=== PATIENT | female | born 1995 | race Caucasian/White ===

== ENCOUNTER 2024-04-25 08:05 | Outpatient (CLI) | payer OTHER, SELFPAY ==
--- NOTE | ~2024-04-25 | US_ITS ---
US abdomen limited INDICATION: Epigastric pain PROCEDURE: Realtime right upper abdominal ultrasound. COMPARISON: No prior studies for comparison. FINDINGS: The pancreas is normal without focal mass or pancreatic ductal dilation. Liver echotexture is normal without focal mass or intrahepatic biliary dilatation. There is normal directional flow i n the portal vein. The gallbladder is normal without stones, gallbladder wall thickening or pericholecystic fluid. Comm on bile duct measures 3 mm. No sonographic Hogan's sign. IMPRESSION: 1: Normal limited abdominal ultrasound. Reviewed, dictated and finalized at location B.
== END 2024-04-25 08:06 ==
LOC: MICIMG 08:07
DX: K92.1 Melena (principal); R10.13 Epigastric pain; R19.4 Change in bowel habit; R15.2 Fecal urgency; Z80.0 Family history of malignant neoplasm of digestive organs; R15.9 Full incontinence of feces
CPT/HCPCS: 76705

== ENCOUNTER 2024-11-16 17:57 | Emergency (ER) | payer OTHER, SELFPAY ==
--- OUTSIDE RECORDS SUMMARY | 2024-11-16 18:00 | XMS_ITS ---
Author Organization [facility] Address [address] [place], [place] [id number] Care Team Providers Care Research Professional Name Role Phone CRAIG Venegas Unavailable [phone] Allen Mcrae Unavailable Unavailable ART REYES Unavailable [phone] Allergies No Known Allergies REASON FOR VISIT *Nail surgery follow-up Encounters Encounter Location Date Provider Diagnosis [facility] [address] [facility] [address] [place], [place] [id number] 04/03/2024 ART REYES Ingrowing nail L60.0 and Encounter for other specified surgical aftercare Z48.89 Assessments Encounter Date Diagnosis (ICD Code) Assessment Notes Treatment Notes Treatment Clinical Notes Section Notes 04/03/2024 Ingrowing nail (ICD-10 - L60.0) 04/03/2024 Encounter for other specified surgical aftercare (ICD-10 - Z48.89) 04/03/2024 Other I advised the patient that no further treatment is necessary at this time. If the condition should worsen they should call the office. Plan Of Treatment No Information Progress Notes * CHARLIE MALISSADOB:1995 ( 28 yo F)Acc No.[id number]:04/03/2024 Patient: MALISSA REED Provider: Pamela Reyes DPM :1995 A ge:28 Y S ex:Female Date:04/03/2024 Address:[address] [id number] Subjective: * Chief Complaints: * 1 . *Nail surgery follow-up. * HPI: H PI: Follow Up Visit P atient presents for follow-up visit for nail surgery. Patient had both borders removed at previous visit. Patient states she is doing well and has been following after care instructions. MA: JONAH. * Medical History: * Family History: F ather: PRN - Father: . * Social History: M igrated Social History: M igrated Social History: History of tobacco use : , Smoking Status : Never used tobacco. * Allergies: N .K.D.A. Objective: * Examination: P hysical Examination: Gen: T he patient is awake, alert, well developed, well groomed and well nourished. They are in no apparent distress. . Musc: T here is no pain on palpation. Foot structure is normal. . Derm: S kin is warm and dry, with no rashes, good skin turgor and normal hair distribution. The site of the nail surgery is healing well. There are no signs of infection. . Neuro: G rossly intact to light touch bilateral . Vasc: D orsalis pedis and posterior tibial pulses 2+ bilaterally. No edema noted. Capillary fill time < 3 seconds to all digits. . Assessment: * Assessment: 1. I ngrowing nail - L60.0 (Primary) 2 . E ncounter for other specified surgical aftercare - Z48.89 Plan: * Treatment: * Procedure Codes: 9 9024 POSTOP FOLLOW-UP VISIT * Billing Information: * Visit Code: * Procedure Codes: 82853 POSTOP FOLLOW-UP VISIT. * Sign off status: Completed true * Provider: Pamela Reyes DPM Date: 0 04/03/2024 Generated for Miranda lawler/Darrick/Katiaitting on: 0 11/16/2024 05:59 PM MANAGEMENT LIAISON History and Physical Notes * HPI (History of Present Illness) Category Sub-Category Detail Notes Category Not es HPI Follow Up Visit Patient presents for follow-up visit for nail surgery. Patient had both borders removed at previous visit. Patient states she is doing well and has been following after care instructions. MA: LB Examination Category Sub-Category Detail Notes Category Not es Physical Examination Gen: The patient is awake, alert, well developed, well groomed and well nourished. They are in no apparent distress. Vasc: Dorsalis pedis and p osterior tibial pulses 2+ bilaterally. No edema noted. Capillary fill time < 3 seconds to all digits. Neuro: Grossly intact to li ght touch bilateral Musc: There is no pain on palpation. Foot structure is normal. Derm: Skin is warm and dry , with no rashes, good skin turgor and normal hair distribution. The site of the nail surgery is healing well. There are no signs of infection.
--- OUTSIDE RECORDS SUMMARY | 2024-11-16 18:00 | XMS_ITS | Patient Health Summary ---
Author Organization [facility] Address [address] [place] [address] Care Team Providers Care Packing Line Worker Name Role Phone Christal Liu MD Primary Care Provider Note from [facility],non-owned Affiliates and Associated Physician Practices is amultiple site organization consisting of ambulatory clinics and hospital sitesin [place], [place], [place] and [place]. This disclosure is being madepursuant to the Care Everywhere program and may not contain all information available regarding this patient. Last updated 18.[facility] Allergies No known active allergies Medications * Be aware that medications may not be up to date on this document. Alwaysverify current medications with the patient. * etonogestrel-ethinyl estradiol (Nuvaring) 0.12-0.015 MG/24HR vaginal ring (Started 04/20/2023) * Cetirizine HCl (ZYRTEC ALLERGY PO) * ondansetron, disintegrating, (Zofran ODT) 4 MG tablet(Started 01/22/2024) Take 1 (one) tablet by mouth every 6 hours as needed * traZODone (Desyrel) 50 MG tablet(Started 10/14/2023) Take 1 (one) tablet to 2 (two) tablets by mouth at bedtime * sertraline (Zoloft) 100 MG tablet(Started 10/14/2023) Take 1 (one) tablet by mouth once daily Active Problems Problem Noted Date Diagnosed Date Allergic rhinitis 05/13/2023 Immunizations * INFLUENZA VACCINE, CELL CULTURE, QUADR. (FLUCELVAX QUADRIVALENT; 6MO+) (CCIIV4)(Given 06/29/2022) Social History Tobacco Use Types Packs/Day Years Used Date Smoking Tobacco: Former Cigarettes 0.5 4 0 05/07/2009 - 05/07/2013 Passive Smoke Exposure: Past Smokeless Tobacco: Never Tobacco Cessation:Counseling Given: Not Answered Alcohol Use Standard Drinks/Week Comments Not Currently 0 (1 standard drink = 0.6 oz pur e alcohol) PHQ-2 Answer Date Recorded PHQ2 TOTAL SCORE 0 05/13/2023 Sex and Gender Information Value Date Recorded Sex Assigned at Female 05/13/2023 9:28 PM CDT Gender Identity Female 05/13/2023 9:28 PM CDT Sexual Orientation Straight 05/13/2023 9: 28 PM CDT Last Filed Vital Signs Vital Sign Reading Time Taken Comments Blood Pressure 116/79 05/18/2024 10:00 AM CDT Pulse 90 05/18/2024 10:00 AM CDT Temperature 36.4 C (97.6 F) 05/18/2024 9:35 AM CDT Respiratory Rate 19 05/18/2024 10:00 AM CDT Oxygen Saturation 96% 05/18/2024 10:20 AM CDT Inhaled Oxygen Concentration - - Weight 91.2 kg (201 lb) 05/18/2024 7:19 AM CDT Height 165.1 cm (5' 5 ) 05/18/2024 7:19 AM CDT Body Mass Index 33.45 05/18/2024 7:19 AM CDT Procedures * PATHOLOGY TISSUE EXAM (STL)(Performed 05/18/2024) Performed for Rectal bleeding, Abdominal pain, unspecified abdominal location * HELICOBACTER PYLORI UREASE (STL)(Performed 05/18/2024) Performed for Rectal bleeding, Abdominal pain, unspecified abdominal location * AL COLONOSCOPY,BIOPSY(Performed 05/18/2024) Performed for Rectal bleeding, Abdominal pain, unspecified abdominal location * AL EGD FLEX TRANSORAL W BX SNGL OR MULT(Performed 05/18/2024) Performed for Rectal bleeding, Abdominal pain, unspecified abdominal location * AL ED EGD FLEX TRANSORAL DX(Performed 05/18/2024) Performed for Rectal bleeding, Abdominal pain, unspecified abdominal location * AL COLONOSCOPY, DIAGNOSTIC(Performed 05/18/2024) Performed for Rectal bleeding, Abdominal pain, unspecified abdominal location * ENDOSCOPY, COLON, DIAGNOSTIC(Performed 05/18/2024) Performed for Blood in stool * EGD(Performed 05/18/2024) Performed for Abdominal pain, unspecified abdominal location * HCG URINE QUALITATIVE - POCT (IP) INTERFACED(Performed 05/18/2024) * US ABDOMEN LIMITED(Performed 04/25/2024) Performed for Hematochezia, Epigastric pain, Change in bowel habits, Fecal urgency, FHx: malignant neoplasm of gastrointestinal tract, Encopresis * COMPREHENSIVE METABOLIC PANEL(Performed 03/25/2024) Performed for Hematochezia, Epigastric pain, Change in bowel habits, Fecal urgency, FHx: malignant neoplasm of gastrointestinal tract * CBC W AUTO DIFFERENTIAL(Performed 03/25/2024) Performed for Hematochezia, Epigastric pain, Change in bowel habits, Fecal urgency, FHx: malignant neoplasm of gastrointestinal tract * INFLAMMATORY BOWEL DISEASE PANEL(Performed 03/25/2024) Performed for Hematochezia, Epigastric pain, Change in bowel habits, Fecal urgency, FHx: malignant neoplasm of gastrointestinal tract * C-REACTIVE PROTEIN(Performed 03/25/2024) Performed for Hematochezia, Epigastric pain, Change in bowel habits, Fecal urgency, FHx: malignant neoplasm of gastrointestinal tract * ERYTHROCYTE SEDIMENTATION RATE(Performed 03/25/2024) Performed for Hematochezia, Epigastric pain, Change in bowel habits, Fecal urgency, FHx: malignant neoplasm of gastrointestinal tract * AMYLASE BLOOD(Performed 05/18/2023) Performed for Generalized abdominal pain * LIPASE BLOOD(Performed 05/18/2023) Performed for Generalized abdominal pain * LIPID PROFILE(Performed 05/18/2023) Performed for Encounter for medical examination to establish care * TSH(Performed 05/18/2023) Performed for Encounter for medical examination to establish care, Generalized abdominal pain, Bright red rectal bleeding * COMPREHENSIVE METABOLIC PANEL(Performed 05/18/2023) Performed for Generalized abdominal pain, Bright red rectal bleeding, Encounter for medical examination to establish care * CBC W AUTO DIFFERENTIAL(Performed 05/18/2023) Performed for Generalized abdominal pain, Bright red rectal bleeding, Encounter for medical examination to establish care Results * PATHOLOGY TISSUE EXAM (STL) (05/18/2024 9:30 AM CDT) Case Report Surgical Pathology Report Case: [id number] Authorizing Provider: Yessy Viera MD Collected: 05/18/2024 09:30 AM Ordering Location: [facility] Received: 05/18/2024 11:39 AM Hospital - Endoscopy Services Pathologist: Esthela Riley MD Specimen: Colon Biopsy, Random 05/19/2024 9:02 AM [facility] Final Diagnosis Large intestine, random, biopsy - Colonic mucosa with no histopathologic abnormality - No evidence of active, chronic or microscopic colitis 05/19/2024 9:02 AM [facility] Clinical History The patient is a 29-year-old woman with hematochezia. Endoscopic procedure/findings: normal examined colon, biopsied. 05/19/2024 9:02 AM [facility] Gross Description The requisition and specimen(s) are identified with the patient's name Joceline Yun . Received in formalin, specimen A , random consists of 3 yellow-solitario tissue fragments, 0.2-0.3 cm and 0.5 x 0.3 x 0.1 cm in aggregate, submitted in toto in cassette A1./BAJ 05/19/2024 9:02 AM [facility] Microscopic Description Microscopic examination substantiates the above diagnosis. 05/19/2024 9:02 AM [facility] Pathologist Location at [facility] 05/19/2024 9:02 AM [facility] Disclaimer All histochemical and/or immunohistochemical results are interpreted with controls that demonstrate appropriate staining reactions before reporting results. Note on use of immunocytochemistry reagents: This test was developed and its performance characteristic determined by [facility], Department of Laboratory Medicine. It has not been cleared or approved by the U.S. Food and Drug Administration (FDA). The FDA has determined that such clearance or approval is not necessary. The test is used for clinical purpose. It should not be regarded as investigational or for research. This laboratory is certified to perform high complexity testing. The performance characteristics of the IHC/YURIDIA assays have been validated on formalin-fixed paraffin embedded tissues only. The assays have not been validated on decalcified tissues. Results should be interpreted with caution. 05/19/2024 9:02 AM CDT [facility] Embedded Images 05/19/2024 9:02 AM CDT [facility] Pathology/Cytology COLONIC BIOPSY SPECIMEN / Unknown 05/18/2024 9:30 AM CDT 05/18/2024 11:39 AM CDT Comment:Pre-op diagnosis: Rectal bleeding [K62.5] Abdominal pain, unspecified abdominal location [R10.9] Yesys Viera MD LAB - PATHOLOGY/CYTO LOGY ORDERABLES Performing Organization Address City/[facility] Co de Phone Number [facility] [address] [place] [id number] * HELICOBACTER PYLORI UREASE (STL) (05/18/2024 9:19 AM CDT) Helicobacter pylori Urease Initial Negative Negative 05/21/2024 3:01 PM CDT [facility] Helicobacter pylori Urease Final Negative Negative 05/21/2024 3:01 PM CDT [facility] Microbiology GASTRIC BIOPSY SPECIMEN / Unknown 05/18/2024 9:19 AM CDT 05/18/2024 6:37 PM CDT Comment:Pre-op diagnosis: Rectal bleeding [K62.5] Abdominal pain, unspecified abdominal location [R10.9] Yessy Viera MD LAB - MICROBIOLOGY O RDERABLES Performing Organization Address City/[facility]/ZIP Co de Phone Number [facility] [address] [place], [place] [phone] * ENDOSCOPY, COLON, DIAGNOSTIC (05/18/2024 8:01 AM CDT) Report Endoscopy POC _ Patient Name: Joceline Jama Procedure Date: 05/18/2024 8:01 AM Date of : 1995 Admit Type: Outpatient Age: 29 Gender: Female Ethnicity: Not or Race: White Attending MD: Yessy Viera MD, [id number] _ Procedure: Colonoscopy Indications: Hematochezia Providers: Yessy Viera MD (Doctor), Remington Sr RN, Akiko Plata, Delivery Coordinator Patient Profile: 29F presents for eval of rectal bleeding. no prior exams Referring MD: Christal Liu MD (Referring MD) Medicines: Monitored Anesthesia Care Complications: No immediate complications. _ Estimated Blood Loss: Estimated blood loss was minimal. Procedure: Pre-Anesthesia Assessment: - Prior to the procedure, a History and Physical was performed, and patient medications and allergies were reviewed. The patient's tolerance of previous anesthesia was also reviewed. The risks and benefits of the procedure and the sedation options and risks were discussed with the patient. All questions were answered, and informed consent was obtained. Prior Anticoagulants: The patient has taken no anticoagulant or antiplatelet agents. ASA Grade Assessment: II - A patient with mild systemic disease. After reviewing the risks and benefits, the patient was deemed in satisfactory condition to undergo the procedure. After I obtained informed consent, the scope was passed under direct vision. Throughout the procedure, the patient's blood pressure, pulse, and oxygen saturations were monitored continuously. The Colonoscope was introduced through the anus and advanced to the cecum, identified by appendiceal orifice and ileocecal valve. The colonoscopy was performed without difficulty. The patient tolerated the procedure well. The quality of the bowel preparation was fair. The ileocecal valve, appendiceal orifice, and rectum were photographed. Impression: - Preparation of the colon was fair. - Internal hemorrhoids. - Normal mucosa in the entire examined colon. Biopsied. Findings: The perianal and digital rectal examinations were normal. Internal hemorrhoids were found during retroflexion. The hemorrhoids were small. Normal mucosa was found in the entire colon. Biopsies were taken with a cold forceps for histology. _ Recommendation: - Patient has a contact number available for emergencies. The signs and symptoms of potential delayed complications were discussed with the patient. Return to normal activities tomorrow. Written discharge instructions were provided to the patient. - High fiber diet. - Await pathology results. - Repeat colonoscopy at age 45 for screening purposes. - Use fiber, for example Citrucel, Fibercon, Konsyl or Metamucil. Procedure Code(s): --- Professional --- 72239, Colonoscopy, flexible; with biopsy, single or multiple --- Technical --- 74280, Colonoscopy, flexible; with biopsy, single or multiple Diagnosis Code(s): --- Professional --- K64.8, Other hemorrhoids K92.1, Melena (includes Hematochezia) --- Technical --- K64.8, Other hemorrhoids K92.1, Melena (includes Hematochezia) CPT copyright 2020 [employer]. All rights reserved. The codes documented in this report are preliminary and upon bench boring machine operator review may be revised to meet current compliance requirements. Yessy Viera MD 05/18/2024 9:41:48 AM This report has been signed electronically. Number of Addenda: 0 Note Initiated On: 05/18/2024 8:01 AM [facility] 05/18/2024 8:01 AM CDT Narrative Procedure Note Yessy Viera MD - 05/18/2024 9:44 AM CDT Normal colon aside from hemorrhoids Psyllium Await path D/w joceline Yessy Viera MD GI PROCEDURE ORDERAB LES [facility] * EGD (05/18/2024 8:00 AM CDT) Report Endoscopy POC _ Patient Name: Joceline Yun Procedure Date: 05/18/2024 8:00 AM Date of : 1995 Admit Type: Outpatient Age: 29 Gender: Female Ethnicity: Not or Race: White Attending MD: Yessy Viera MD, [id number] _ Procedure: Upper GI endoscopy Indications: Generalized abdominal pain Providers: Yessy Viera MD (Doctor), Remington Sr RN, Akiko Plata, Delivery Coordinator Patient Profile: 29F presents for eval of abd pain Referring MD: Christal Liu MD (Referring MD) Medicines: Monitored Anesthesia Care Complications: No immediate complications. _ Estimated Blood Loss: Estimated blood loss was minimal. Procedure: Pre-Anesthesia Assessment: - Prior to the procedure, a History and Physical was performed, and patient medications and allergies were reviewed. The patient's tolerance of previous anesthesia was also reviewed. The risks and benefits of the procedure and the sedation options and risks were discussed with the patient. All questions were answered, and informed consent was obtained. Prior Anticoagulants: The patient has taken no anticoagulant or antiplatelet agents. ASA Grade Assessment: II - A patient with mild systemic disease. After reviewing the risks and benefits, the patient was deemed in satisfactory condition to undergo the procedure. After obtaining informed consent, the endoscope was passed under direct vision. Throughout the procedure, the patient's blood pressure, pulse, and oxygen saturations were monitored continuously. The was introduced through the mouth, and advanced to the second part of duodenum. The upper GI endoscopy was accomplished without difficulty. The patient tolerated the procedure well. Impression: - Normal esophagus. - Normal stomach. Biopsied. Findings: The examined esophagus was normal. The entire examined stomach was normal. Biopsies were taken with a cold forceps for Helicobacter pylori testing using CLOtest. _ Recommendation: - Patient has a contact number available for emergencies. The signs and symptoms of potential delayed complications were discussed with the patient. Return to normal activities tomorrow. Written discharge instructions were provided to the patient. - High fiber diet. - Await pathology results. - proceed to colonoscopy Procedure Code(s): --- Professional --- 48719, Esophagogastroduo denoscopy, flexible, transoral; with biopsy, single or multiple --- Technical --- 97417, Esophagogastroduo denoscopy, flexible, transoral; with biopsy, single or multiple Diagnosis Code(s): --- Professional --- R10.84, Generalized abdominal pain --- Technical --- R10.84, Generalized abdominal pain CPT copyright 2020 [employer]. All rights reserved. The codes documented in this report are preliminary and upon bench boring machine operator review may be revised to meet current compliance requirements. Yessy Viera MD 05/18/2024 9:33:54 AM This report has been signed electronically. Number of Addenda: 0 Note Initiated On: 05/18/2024 8:00 AM [facility] 05/18/2024 8:00 AM CDT Narrative Procedure Note Yessy Viera MD - 05/18/2024 9:35 AM CDT Normal EGD s/p gastric bx Await path Proceed to colon Yessy Viera MD GI PROCEDURE ORDERAB LES [facility] * HCG URINE QUALITATIVE - POCT (IP) INTERFACED (05/18/2024 7:16 AM CDT) HCG Qual Urine Negative Negative 05/18/2024 7:22 AM CDT [facility] Urine URINE / Unknown 05/18/2024 7 :16 AM CDT 05/18/2024 7:22 AM CDT Yessy Viera MD LAB - POINT OF CARE ORDERABLES Performing Organization Address City/[facility]/ZIP Co de Phone Number [facility] [address] [place], [place] [phone] * US ABDOMEN LIMITED (04/25/2024) Anatomical Region Laterality Modality Abdomen Ultrasound 04/25/2024 Nirav Faith WIRE TRANSFER CLERK-CASH SPECIALIST US ORDERABLES * (ABNORMAL) INFLAMMATORY BOWEL DISEASE PANEL (03/25/2024 11:46 AM CDT) Saccharomyces cerevisiae Antibody IgG 45.2(H) 0.0 - 24.9 Units 03/27/2024 3:09 PM CDT [facility] ([facility]) Comment: Negative <20.0 Equivocal 20.1 - 24.9 Positive >or= 25.0 Saccharomyces cerevisiae Antibody IgA 53.8(H) 0.0 - 24.9 Units 03/27/2024 3:09 PM CDT [facility]) Comment: Negative <20.0 Equivocal 20.1 - 24.9 Positive >or= 25.0 IgA and IgG antibody testing for S. cerevisiae is useful adjunct testing for differentiating Crohn's disease and ulcerative colitis. Close to 80% of Crohn's disease patients are positive for either IgA or IgG. In ulcerative colitis, less than 15% are positive for IgG and less than 2% are positive for IgA. Fewer than 5% are positive for either IgG or IgA antibody, and no healthy controls had antibody for both. Atypical p-ANCA Titer <1:20 Neg:<1:20 titer 03/27/2024 3:09 PM CDT [facility] ([facility]) Comment: The atypical pANCA pattern has been observed in a significant percentage of patients with ulcerative colitis, primary sclerosing cholangitis and autoimmune hepatitis. ASCA+/PANCA- Suggestive of Crohn's disease ASCA-/PANCA+ Suggestive of Ulcerative colitis Blood BLOOD SPECIMEN / Unknown Lab Venipuncture / Unknown 03/25/2024 11:46 AM CDT 03/25/2024 11:46 AM CDT Narrative [facility] ([facility]) - 03/27/2024 3:09 PM CDT Performed at: [address] [id number] Plant Worker: Chapito Chua MD, Phone: [phone] Performed at: 02 [address] [id number] Plant Worker: Cole Carbone PhD, Phone: [phone] Nirav Faith APRN-CASH SPECIALIST LAB - WEB OPERATIONS LEAD RY ORDERABLES [facility] ([facility]) [address] [place] [address] * (ABNORMAL) C-REACTIVE PROTEIN (03/25/2024 11:46 AM CDT) C-Reactive Protein 2.63(H) <=0.50 mg/dL 03/25/2024 1:00 PM CDT [facility] Blood BLOOD SPECIMEN / Unknown Lab Venipuncture / Unknown 03/25/2024 11:46 AM CDT 03/25/2024 11:46 AM CDT Nirav Faith [facility] LAB - WEB OPERATIONS LEAD RY ORDERABLES Performing Organization Address [facility] Co de Phone Number [facility] [address] [place] [phone] * (ABNORMAL) ERYTHROCYTE SEDIMENTATION RATE (03/25/2024 11:46 AM CDT) [facility] Erythrocyte Sedimentation Rate Automated 26(H) 0 - 20 MM/HR 03/25/2024 12:43 PM CDT [facility] Blood BLOOD SPECIMEN / Unknown Lab Venipuncture / Unknown 03/25/2024 11:46 AM CDT 03/25/2024 11:46 AM CDT Nirav Faith [facility] LAB - HEMATOL OGY ORDERABLES Performing Organization Address [facility] de Phone Number [facility] [address] [place] [address] * (ABNORMAL) CBC WITH DIFFERENTIAL (03/25/2024 11:46 AM CDT) Only the most recent of2 resultswithin the time period is included. Pathologist [facility] WBC 11.4(H) 4.0 - 10.7 x10E9/L 03/25/2024 12:36 PM CDT [facility] RBC Count 5.01 3.90 - 5.20 x10E12/L 03/25/2024 12:36 PM CDT [facility] Hemoglobin 14.1 11.9 - 15.8 g/dL 03/25/2024 12:36 PM CDT [facility] Hematocrit 44.4 34.8 - 46.1 % 03/25/2024 12:36 PM CDT [facility] MCV 88.6 80.0 - 98.0 fL 03/25/2024 12:36 PM CDT [facility] MCH 28.1 26.7 - 33.6 pg 03/25/2024 12:36 PM [facility] MCHC 31.8 31.7 - 36.3 g/dL 03/25/2024 12:36 PM [facility] RDW-CV 11.7 11.3 - 14.8 % 03/25/2024 12:36 PM [facility] Platelet Count 264 150 - 420 x10E9/L 03/25/2024 12:36 PM [facility] MPV 11.2 7.8 - 11.4 fL 03/25/2024 12:36 PM [facility] Neutrophil % 73.4 41.0 - 74.0 % 03/25/2024 12:36 PM [facility] Lymphocyte % 18.5 17.0 - 47.0 % 03/25/2024 12:36 PM [facility] Monocyte % 6.8 3.0 - 11.0 % 03/25/2024 12:36 PM [facility] Eosinophil % 0.7 0.0 - 7.0 % 03/25/2024 12:36 PM [facility] Basophil % 0.2 0.0 - 1.6 % 03/25/2024 12:36 PM [facility] Immature Granulocytes % 0.4 0.0 - 1.0 % 03/25/2024 12:36 PM [facility] Neutrophil Absolute 8.39(H) 1.60 - 7.50 x10E9/L 03/25/2024 12:36 PM [facility] Lymphocyte Absolute 2.12 1.00 - 4.40 x10E9/L 03/25/2024 12:36 PM [facility] Monocyte Absolute 0.78 0.15 - 1.00 x10E9/L 03/25/2024 12:36 PM [facility] Eosinophil Absolute 0.08 0.00 - 0.60 x10E9/L 03/25/2024 12:36 PM [facility] Basophil Absolute 0.02 0.00 - 0.13 x10E9/L 03/25/2024 12:36 PM [facility] Blood BLOOD SPECIMEN / Unknown Lab Venipuncture / Unknown 03/25/2024 11:46 AM CDT 03/25/2024 11:46 AM CDT Nirav Faith WIRE TRANSFER CLERK-CASH SPECIALIST LAB - HEMATOL OGY ORDERABLES [facility] [address] [place] [address] * COMPREHENSIVE METABOLIC PANEL (03/25/2024 11:46 AM CDT) Only the most recent of2 resultswithin the time period is included. [facility] Glucose 70 70 - 105 mg/dL 03/25/2024 1:00 PM CDT [facility] Sodium 137 136 - 145 mmol/L 03/25/2024 1:00 PM CDT [facility] Potassium 4.3 3.5 - 5.1 mmol/L 03/25/2024 1:00 PM CDT [facility] Chloride 105 98 - 107 mmol/L 03/25/2024 1:00 PM CDT [facility] CO2 23 22 - 29 mmol/L 03/25/2024 1:00 PM CDT [facility] Calcium 9.7 8.4 - 10.4 mg/dL 03/25/2024 1:00 PM CDT [facility] Anion Gap 9 6 - 16 mmol/L 03/25/2024 1:00 PM CDT [facility] BUN 10 5.3 - 18.7 mg/dL 03/25/2024 1:00 PM CDT [facility] Creatinine 0.81 0.57 - 1.11 mg/dL 03/25/2024 1:00 PM CDT [facility] Alkaline Phosphatase 89 40 - 150 U/L 03/25/2024 1:00 PM CDT [facility] ALT 15 0 - 55 U/L 03/25/2024 1:00 PM CDT [facility] AST 14 5 - 34 U/L 03/25/2024 1:00 PM CDT [facility] Protein Total 8.0 6.4 - 8.3 gm/dL 03/25/2024 1:00 PM CDT [facility] Albumin 3.6 3.4 - 5.0 gm/dL 03/25/2024 1:00 PM T [facility] Bilirubin Total 0.5 0.2 - 1.2 mg/dL 03/25/2024 1:00 PM CDT [facility] eGFR by CKD-EPI >90 >=90 mL/min/1.7 3 m2 03/25/2024 1:00 PM CDT [facility] Blood BLOOD SPECIMEN / Unknown Lab Venipuncture / Unknown 03/25/2024 11:46 AM CDT 03/25/2024 11:46 AM CDT Nirav Faith APRN-CASH SPECIALIST LAB - WEB OPERATIONS LEAD RY ORDERABLES [facility] [address] [place] [address] * LIPASE BLOOD (05/18/2023 7:44 AM CDT) Lipase 38 14 - 72 U/L [facility] INSURANCE BILL Comment:FASTING Blood BLOOD SPECIMEN / Unknown 05/18/2023 7:44 AM CDT 05/18/2023 Narrative Resulting Agency Comment Lab Testing performed at: [email or web address] [place] [address] [facility] [phone] Christal Liu MD LAB - CHEMISTRY ORDERABLES Performing Organization Address [facility] Co de Phone Number [facility] INSURANCE BILL [address] [place] [address] * AMYLASE BLOOD (05/18/2023 7:44 AM CDT) Amylase 71 31 - 110 U/L [facility] INSURANCE BILL Comment:FASTING Blood BLOOD SPECIMEN / Unknown 05/18/2023 7:44 AM CDT 05/18/2023 Narrative Resulting Agency Comment Lab Testing performed at: [facility] [address] [facility] [phone] Christal Liu MD LAB - CHEMISTRY ORDERABLES Performing Organization Address City/[facility]/ZIP Co de Phone Number [facility] INSURANCE BILL [address] [place] [address] * TSH (05/18/2023 7:44 AM CDT) TSH 1.380 0.450 - 4.500 uIU/mL [facility] INSURANCE BILL Comment:FASTING Blood BLOOD SPECIMEN / Unknown 05/18/2023 7:44 AM CDT 05/18/2023 Narrative Resulting Agency Comment Lab Testing performed at: [facility] [address] [facility] [phone] Christal Liu MD LAB - CHEMISTRY ORDERABLES [facility] INSURANCE BILL [address] [place] [address] * (ABNORMAL) LIPID PROFILE (05/18/2023 7:44 AM CDT) Cholesterol 209(H) 100 - 199 mg/dL [facility] INSURANCE BILL Triglycerides 204(H) 0 - 149 mg/dL [facility] INSURANCE BILL HDL Cholesterol 40 >39 mg/dL [facility] INSURANCE BILL VLDL Calculated 37 5 - 40 mg/dL [facility] INSURANCE BILL LDL Calculated 132(H) 0 - 99 mg/dL [facility] INSURANCE BILL Comment NOT AVAILABLE [facility] INSURANCE BILL Comment: FASTING Result cannot be obtained for this observation. Blood BLOOD SPECIMEN / Unknown 05/18/2023 7:44 AM CDT 05/18/2023 Narrative Resulting Agency Comment Lab Testing performed at: [facility] [address] [facility] [phone] Christal Liu MD LAB - CHEMISTRY ORDERABLES [facility] INSURANCE BILL [address] [place] [address] Care Teams Packing Line Worker Relationship Specialty Start Date End Date Christal Liu MD [address] [place] [address] PCP - General 11/28/23
--- OUTSIDE RECORDS SUMMARY | 2024-11-16 18:00 | XMS_ITS | Data Portability ---
Author Organization [facility]ITAL[facility] Address [address] [place] [address] Care Team Providers Care Electronics Engineering Manager Name Role Phone GERARDO JOHNSON Primary Care Provider [phone] Assessment No assessment recorded. Plan of Treatment Reminders Order Date Submit Date Provider Last Modified By Organization Details Last Modified Time Details Appointments None recorded. Lab pap, LB 2021 [email or web address], [address] [facility], [place], [address], 09:43:53 unlisted lab - Pap reflex hold 2021 [facility], [address] [place] [address], [address], 17:20:47 Referral None recorded. Procedures removal, intrauterin e device (PROC) 2021 kbritsch Not available 14:43:44 Surgeries None recorded. Imaging US, pelvis, limited - IUD placement 2020 HEMAL Not available 17:39:46 Medication Orders ibuprofen 800 mg tablet 2020 [email or web address] [facility], [address] [facility] [address] [place], [id number], 17:27:30 NuvaRing 0.12 mg-0.015 mg/24 hr vaginal 2021 [facility] [facility] [place], [address] [place], [id number], 19:08:37 estradiol 0.01% (0.1 mg/gram) vaginal cream 2023 [facility] [facility], [address] [place], [id number], 13:52:26 NuvaRing 0.12 mg-0.015 mg/24 hr vaginal 2023 [facility] [place], [address] [place], [id number], 13:52:25 Patient TargetsNo targets recorded. Patient Instructions Encounter Date Encounter Id Patient Instructions Last Modified By Organization Details Last Modified Time 09/12/2021 [id number] Care at Home With Your Baby: Care Instructions [email or web address] Not available 09/12/2021 11:49:11 edinburgh depression scale* [email or web address] Not available 10/05/2021 14:55:59 09/20/2022 [id number] Patient Health Questionnaire-9* kbritsch Not available 09/24/2022 14:42:53 eating healthy foods: care instructions [email or web address] Not available 09/20/2022 19:08:27 abuse/domestic violence education [email or web address] Not available 09/20/2022 19:08:27 01/25/2024 [id number] body mass index: care instructions [email or web address] Not available 01/25/2024 13:52:17 learning about control [email or web address] Not available 01/25/2024 13:52:17 Reason for Referral None Reported. Results Created Date Observation Date Name Description Value Unit Range Abnormal Flag Note LastModifiedBy Organization Detail LastModifiedTime 09/20/2009/26/2022 THINP REP TIS PAP clinical information: normal None given Not Available [employer] [facility] [address] [place], [address], 09/26/2022 09:43:53 09/20/20 22 09/26/2022 THINP REP TIS PAP LMP: normal NONE GIVEN Not Available [address], [address], 09/26/2022 09:43:53 09/20/20 22 09/26/2022 THINP REP TIS PAP prev. Pap: normal NONE GIVEN Not Available [address], [address], 09/26/2022 09:43:53 09/20/20 22 09/26/2022 THINP REP TIS PAP prev. BX: normal NONE GIVEN Not Available [address], [address], 09/26/2022 09:43:53 09/20/20 22 09/26/2022 THINP REP TIS PAP source: normal Cervi x Not Available [address], [address], 09/26/2022 09:43:53 09/20/20 22 09/26/2022 THINP REP TIS PAP statement of adequacy: normal Satis facto ry for evalu ation . Endoc ervic al/tr ansfo rmati on zone compo nent prese nt. Age and/o r menst rual statu s not provi ded Not Available [address], [address], 09/26/2022 09:43:53 09/20/20 22 09/26/2022 THINP REP TIS PAP interpretati on/result: normal Negat mao for intra epith elial lesio n or malig anel . Not Available [address], [address], 09/26/2022 09:43:53 09/20/20 22 09/26/2022 THINP REP TIS PAP comment: normal This Pap test has been evalu ated with compu ter delma aisha techn ology . Not Available [address] [address] [place], [address], 09/26/2022 09:43:53 09/20/20 22 09/26/2022 THINP REP TIS PAP cytotechnolo gist: normal DDS, CT( CP) CT scree bertha locat ion: [address] [address] [place] [address] Not Available [address] [address] [place], [address], 09/26/2022 09:43:53 09/20/20 22 09/26/2022 THINP REP TIS PAP comment EXPLA NATOR Y NOTE: The Pap is a scree bertha test for cervi mirna cance r. It is not a diagn ostic test and is subje ct to false negat mao and false posit mao resul ts. It is most relia ble when a satis facto ry sampl e, regul manjit obtai tab, is submi tted with relev ant clini mirna findi ngs and histo ry, and when the Pap resul t is evalu ated along with histo chuck and curre nt clini mirna infor matio n. Not Available [address] [address] [place], [address], 09/26/2022 09:43:53 10/02/20 21 10/02/2021 US, pelvi s, limit ed No observ ation record ed. [email or web address] [address], [place], [address], 10/02/2021 18:03:26 10/02/20 21 10/02/2021 US, pelvi s, limit ed No observ ation record ed. [address], [place], [address], 10/02/2021 18:03:27 10/02/20 21 10/02/2021 US, pelvi s, limit ed No observ ation record ed. [address], [place], [address], 10/02/2021 18:03:27 Result Notes None recorded. Problems Name Problem SNOMED Code Status Onset Date Resolution Date Notes Provider Name and Address Organization Details Recorded Time Pregnanc y, childbir th and puerperi um finding Completed 202005/12/2021 Encounte r for supervis ion of normal first pregnanc y, second trimeste r; Progress : Stable Added By: Patricia Sim Add to Current Problems : NO ProblemS tatus: Resolve Not Available [facility] 2 20:16:14 Syphilis test finding [id number] Completed 201811/23/2020 Encounte r for screenin g for infectio ns with a predomin antly sexual mode of transmis jamil; Progress : Stable Added By: Heather Masters Add to Current Problems : NO ProblemS tatus: Resolve Not Available [facility] 2 20:16:17 Sampling of vagina for Papanico laou smear Completed 201801/23/2021 Encounte r for gynecolo gical examinat ion (general ) (routine ) without abnormal findings ; Progress : Stable Added By: Patricia Sim Add to Current Problems : NO ProblemS tatus: Resolve Not Available [facility] 2 20:16:12 Gestatio n period, 12 weeks [id number] Completed 202002/20/2021 12 weeks gestatio n of pregnanc y; Progress : Stable Added By: Patricia Sim Add to Current Problems : NO ProblemS tatus: Resolve Not Available [facility] 2 20:16:16 Pregnanc y, childbir th and puerperi um finding Completed 202002/20/2021 Encounte r for supervis ion of normal first pregnanc y, first trimeste r; Progress : Stable Added By: Patricia Sim Add to Current Problems : NO ProblemS tatus: Resolve Not Available [facility] 2 20:16:13 Gestatio n period, 16 weeks 47770138 Completed 202003/20/2021 16 weeks gestatio n of pregnanc y; Progress : Stable Added By: Patricia Sim Add to Current Problems : NO ProblemS tatus: Resolve Not Available [facility] 2 20:16:13 Gestatio n period, 20 weeks 30570758 Completed 202004/17/2021 20 weeks gestatio n of pregnanc y; Progress : Stable Added By: Patricia Sim Add to Current Problems : NO ProblemS tatus: Resolve Not Available [facility] 2 20:16:14 Antenata l ultrasou nd finding 720385479 Completed 202001/23/2021 Encounte r for pregnanc y test, result unknown; Progress : Stable Added By: Patricia Sim Add to Current Problems : NO ProblemS tatus: Resolve Not Available [facility] 2 20:16:15 Acute vaginiti s 31972253 Completed 202001/23/2021 Acute vaginiti s; Progress : Stable Added By: La Crenshaw Add to Current Problems : NO ProblemS tatus: Resolve Not Available [facility] 2 20:16:16 Gestatio n period, 24 weeks 597606386 Completed 202005/12/2021 24 weeks gestatio n of pregnanc y; Progress : Stable Added By: Patricia Sim Add to Current Problems : NO ProblemS tatus: Resolve Not Available [facility] 2 20:16:15 Uses combined oral contrace ption 179939076 Completed 201711/23/2020 Encounte r for surveill ance of contrace ptive pills; Progress : Stable Added By: Heather Masters Add to Current Problems : NO ProblemS tatus: Resolve Routine follow-u p for oral contrace ptive prescrip tion; Location : None Progress : Stable Added By: Heather Masters Add to Current Problems : YES ProblemS tatus: Resolve Not Available [facility] 2 20:16:15 Gestatio n period, 34 weeks 10436899 Completed 202008/22/2021 34 weeks gestatio n of pregnanc y; Severity : Moderate Progress : Stable Added By: Patricia Sim Add to Current Problems : YES ProblemS tatus: Current Removal Reason: juventino lomas Patricia Kellee Roney, [facility] [address] [place], [address] , [facility] [employer] [facility] IV 15:26:53 Disorder of pregnanc y Completed 202008/22/2021 Polyhydr amnios, third trimeste r, not applicab le or unspecif ied; Severity : Moderate Progress : Stable Added By: Patricia Sim Add to Current Problems : YES ProblemS tatus: Current Removal Reason: juventino lomas Patricia Sim, [facility] [address] [facility], [place], [address] , [facility] [employer] IV 15:26:46 Gestatio n period, 28 weeks 96066181 Completed 202005/25/2021 28 weeks gestatio n of pregnanc y; Progress : Stable Added By: Makenzie Bahena Add to Current Problems : NO ProblemS tatus: Resolve Not Available [facility] 2 20:16:13 Pregnanc y, childbir th and puerperi um finding Completed 202008/22/2021 Encounte r for supervis ion of normal first pregnanc y, third trimeste r; Severity : Moderate Progress : Stable Added By: Patricia Sim Add to Current Problems : YES ProblemS tatus: Current Removal Reason: juventino lomas Patricia Sim, [facility] [address] [place], [address] , [facility] [employer] [facility] IV 15:26:58 Uterine size for dates discrepa ncy Completed 202008/22/2021 Uterine size-darling e discrepa ncy, third trimeste r; Severity : Moderate Progress : Stable Added By: Patricia Sim Add to Current Problems : YES ProblemS tatus: Current Removal Reason: juventino lomas Patricia Sim, [employer] [address] [facility], [place], [address] , [facility] [employer] [facility] IV 1 15:27:05 Gestatio n period, 32 weeks [id number] Completed 202006/22/2021 32 weeks gestatio n of pregnanc y; Progress : Stable Added By: Patricia Sim Add to Current Problems : NO ProblemS tatus: Resolve Not Available [facility] 2 20:16:15 Gestatio n period, 30 weeks 93104755 Completed 202006/09/2021 30 weeks gestatio n of pregnanc y; Progress : Stable Added By: Patricia Sim Add to Current Problems : NO ProblemS tatus: Resolve Not Available [facility] 2 20:16:14 Screenin g for malignan t neoplasm of cervix Completed 201811/23/2020 Encounte r for screenin g for malignan t neoplasm of cervix; Progress : Stable Added By: Heather Masters Add to Current Problems : NO ProblemS tatus: Resolve Not Available [facility] 2 20:16:12 Antenata l screenin g for malforma tion Completed 202005/12/2021 Encounte r for antenata l screenin g for malforma tions; Progress : Stable Added By: Patricia Sim Add to Current Problems : NO ProblemS tatus: Resolve Not Available [facility] 2 20:16:12 Gestatio n period, 37 weeks [id number] Completed 202007/26/2021 37 weeks gestatio n of pregnanc y; Progress : Stable Added By: Thanh Masters Add to Current Problems : NO ProblemS tatus: Resolve Not Available [facility] 2 20:16:13 Gestatio n period, 36 weeks 87237601 Completed 202007/12/2021 36 weeks gestatio n of pregnanc y; Progress : Stable Added By: Patricia Sim Add to Current Problems : NO ProblemS tatus: Resolve Not Available [facility] 2 20:16:13 Antenata l screenin g Completed 202007/12/2021 Encounte r for antenata l screenin g for Streptoc occus B; Progress : Stable Added By: Patricia Sim Add to Current Problems : NO ProblemS tatus: Resolve Encounte r for other specifie d antenata l screenin g; Progress : Stable Added By: Patricia Sim Add to Current Problems : YES ProblemS tatus: Current; Start Date : 05/12/20 21 Not Available [facility] 2 20:16:14 Pregnanc y detectio n examinat ion Completed 202001/23/2021 Encounte r for pregnanc y test, result positive ; Progress : Stable Added By: Patricia Sim Add to Current Problems : NO ProblemS tatus: Resolve Not Available [facility] 2 20:16:16 Gestatio n period, 39 weeks 86650162 Active 2020 39 weeks gestatio n of pregnanc y; Progress : Stable Added By: Patricia Sim Add to Current Problems : YES ProblemS tatus: Current Not Available [facility] 2 20:16:17 Problem Notes None recorded. Procedures Surgical History Date Name Laterality Status Provider Name and Address Organization Details Recorded Time 2 Mirena IUD Removal completed Patricia Sim CNM [address] [place], [address], [facility] - [employer] [facility] 09/20/2022 22:05:13 2 Date of Last Pap Smear completed Luis Suarez [place] - [facility] 01/25/2024 13:14:39 1 IUD Insertion completed Patricia Sim CNM [facility] [place], [address], [facility] - [employer] 10/02/2021 10:42:18 1 IUD Insertion completed Yanet [place] - [facility] 09/28/2021 12:13:56 1 IUD Exchange cancelled Patricia Sim CNM [address] [place] [address], [address], [facility] - [employer] 09/27/2021 21:24:51 1 IUD Insertion cancelled Patricia Sim CNM [address] [place] [address], [address], [facility] [employer] [facility] 09/27/2021 21:24:50 repair of nose completed [facility] [employer] 08/22/2021 15:23:05 extraction of wisdom tooth completed [facility] [employer] 08/22/2021 15:23:13 Imaging Results Imaging Date Name Status LastModified by Organiz ation Details LastModified Time 10/02/2021 US, pelvis, limited completed [address], [place], [address], 10/02/2021 18:03:26 10/02/2021 US, pelvis, limited completed [address], [place], [address], 10/02/2021 18:03:27 10/02/2021 US, pelvis, limited completed [email or web address] [address], [place], [address], 10/02/2021 18:03:27 Procedure Notes None recorded. Medical Equipment None Reported. Allergies No known drug allergies Medications Name Sig Start Date Stop Date Status Note LastModified by Organization Details LastModified Time trazodone 50 mg tablet active Not Available Not Available Not Available ibuprofen 800 mg tablet Take 1 tablet 3 times a day by oral route as needed. 09/20 completed Not Available Not Available Not Available fluconazo le 150 mg tablet take 1 tablet (150 mg) by oral route once after completi on of antibiot ics 02/20 completed fluconaz ole 150 mg oral tablet RxNorm: 724361 Allow Substitu tion: True Refill Denied: No Edited by: La Chavez ) on 02/21/20 Stopped by: asya(La Cazares ) on 02/21/20 Not Available Not Available Not Available sertralin e 100 mg tablet active Not Available Not Available Not Available Anucort-H C 25 mg supposito ry Insert 1 supposit ory twice a day by rectal route for 14 days. 09/20 completed Not Available Not Available Not Available metronida zole 500 mg tablet take 1 tablet (500 mg) by oral route 2 times per day for 7 days 02/20 completed metroNID AZOLE 500 mg oral tablet RxNorm: 419283 Allow Substitu tion: True Refill Denied: No Edited by: La Chavez ) on 02/21/20 Stopped by: asya(La Cazares ) on 02/21/20 21 Not Available Not Available Not Available oseltamiv ir 75 mg capsule 09/20 completed Not Available Not Available Not Available ibuprofen 600 mg tablet 09/20 completed Not Available Not Available Not Available estradiol 0.01% (0.1 mg/gram) vaginal cream Insert 1 applicat orful by vaginal route. active Not Available Not Available No t Available ondansetr on 4 mg disintegr ating tablet active Not Available Not Available Not Available etonogest rel 0.12 mg-ethiny l estradiol 0.015 mg/24 hr vaginal ring Menorrha barrera: Insert one vaginal ring for 3 weeks and skip off week and place new ring right away active Not Available Not Available No t Available Reclipsen (28) 0.15 mg-0.03 mg tablet Take 1 tablet(s ) by mouth daily as directed . 04/15 completed Reclipse n 30mcg/0. 15mg Tablet RxNorm: 146542 Allow Substitu tion: True Refill Denied: No Not Available Not Available Not Available Tums 09/20 completed Tums RxNorm: 297066 Allow Substitu tion: False Refill Denied: No Refill DateOccu rred: 04/18/20 21 Edited by: asya(La Cazares ) on 06/23/20 21 Stopped by: La Chavez ) on Not Available Not Available Not Available 09/20 completed Allow Substitu tion: False Refill Denied: No Refill DateOccu rred: 01/25/20 21 Edited by: La Chavez ) on 04/18/20 21 Stopped by: La Chavez ) on Not Available Not Available Not Available Zyrtec active ZyrTEC RxNorm: 38870 Refill Denied: No Refill DateOccu rred: 06/23/20 Edited by: asya(La Cazares ) on 06/23/20 21 Stopped by: asya(La Cazares ) on Not Available Not Available Not Available Xyzal Take 1 tablet(s ) by mouth each evening 11/24 completed Xyzal 5mg Tablet RxNorm: 969147 Allow Substitu tion: True Refill Denied: No Refill DateOccu rred: 03/12/20 18 Edited by: La Chavez ) on 11/24/19 21 Stopped by: asya(La Cazares ) on 11/24/19 21 Not Available Not Available Not Available ID NOW COVID-19 Test Kit TEST DIRECTED 08/22 completed Not Available Not Available Not Available Vitals Date Recorded Body height Body mass index (BMI) Body weight Body temperature Systolic blood pressure Diastolic blood pressure Provider Name and Address Organization Details Last Updated DateTime 1 163.83 cm 32.4 kg/m2 59532.7 4 g 97.9 [degF] 118 mm[Hg] 79 mm[Hg] [employer] [facility] 1 11:17:42 Date Recorded Body height Body mass index (BMI) Body weight Body temperature Systolic blood pressure Diastolic blood pressure Provider Name and Address Organization Details Last Updated DateTime 1 163.83 cm 33 kg/m2 79974.2 3 g 98 [degF] 116 mm[Hg] 70 mm[Hg] Yanet GELI [facility] 1 12:02:41 Date Recorded Body height Body mass index (BMI) Body weight Systolic blood pressure Diastolic blood pressure Provider Name and Address Organization Details Last Updated DateTime 10/02/2021 163.83 cm 32.6 kg/m2 81942.33 g 110 mm[Hg] 60 mm[Hg] Trupti Leigh [employer] IV 1 10:24:08 Date Recorded Body height Body mass index (BMI) Body weight Body temperature Systolic blood pressure Diastolic blood pressure Provider Name and Address Organization Details Last Updated DateTime 2 163.83 cm 33.9 kg/m2 38959.9 1 g 98.2 [degF] 102 mm[Hg] 80 mm[Hg] Luz Partida [employer] IV 2 17:26:41 Date Recorded Body height Body mass index (BMI) Body weight Body temperature Systolic blood pressure Diastolic blood pressure Provider Name and Address Organization Details Last Updated DateTime 4 163.83 cm 32.4 kg/m2 07828.3 g 97 [degF] 112 mm[Hg] 62 mm[Hg] Luis Suarez [employer] IV 4 13:18:51 Social History Question Answer Notes LastModified by Organizat ion Details LastModified Time Tobacco Smoking Status Never Smoker Yanet collins, [employer] IV 09/12/2021 11:18:56 What Is Your Level Of Alcohol Consumption? None Information not available 09/12/2021 If You Are , What Was Your Level Of Alcohol Consumption Prior To ? None Information not available 09/12/2021 Are You Blind Or Do You Have Difficulty Seeing? No Information not available 09/12/2021 Are You Deaf Or Do You Have Serious Difficulty Hearing? No Information not available 09/12/2021 What Type Of Diet Are You Following? REGULAR Information not available 09/12/2021 Do You Or Have You Ever Used E-cigarettes Or Vape? Former User Of Electronic Cigarettes [email or web address] Information not available 09/20/2022 How Many Children Do You Have? 1 [email or web address] Information not available 01/25/2024 What Is Your Relationship Status? Information not available 09/12/2021 Are You Sexually Active? Yes Information not available 09/12/2021 Do You Use Any Illicit Or Recreational Drugs? No Information not available 09/12/2021 Do You Or Have You Ever Used Any Other Forms Of Tobacco Or Nicotine? No Information not available 09/12/2021 Sex: Unknown Functional Status Question Answer Note LastModified by Organization D etails LastModified Time What is your exercise level? None Information not available 09/12/2021 Mental Status None recorded. Family History Relationship Description Onset Age of this Age Resolved Age Notes LastModified by Organization Details LastModified Time Father No current problems or disability [email or web address] Not available 04/2021 02:34:20 Mother No current problems or disability [email or web address] Not available 04/2021 02:34:20 Medical History Condition Response History of Abnormal Pap Y Depression Y Gynecological History Statement/Question Response Flow Heavy Date of LMP 01/21/2024 Date of Last Pap Smear 09/20/2022 Duration of Flow (days) 7 Current Control Method Vaginal Rin g Age at Menarche 12 Obstetrics History GPAL:G 1 P 1 0 0 1 Type Value Full Term 1 Living 1 Total 1 Past Encounters Encounter ID Performer Location Encounter Start Date Encounter Closed Date Diagnosis/Indication Diagnosis SNOMED-CT Code Diagnosis ICD10 Code Diagnosis Note [id number] Patricia Sim CNM [facility] [address] [place] [address] 08/22/2021 15:09:50 08/22/2021 16:08:44 state 74462592 Z39.2 Z13.32 .COUNSELIN G was provided today regarding the following topics: healthy eating habits. Patient education given on weight management ., regular exercise. Continue vitaminsCo ntinue light activity; She denies any feelings of depression , frequent crying or feelings of harming self or others. EPDS is 4. Educated on the warning signs of depression and when to seek medical attention. Plan IUD Mirena at 8 wks PPFOLLOW-U P: Schedule a follow-up appointmen t in 4 weeks.. [id number] Patricia Sim CNM [id number] [place] [address] 09/12/2021 10:51:38 09/12/2021 11:53:47 state 40883287 Z39.2 COUNSELING was provided today regarding the following topics:- healthy eating habits. -- education given on weight management .- regular exercise - may resume pre-pregna ncy frequency and intensity as tolerated- Sexual activity - may resume intercours e & use backup contracept ion as needed.- Dietary supplement s: continue vitamins- Hog Killer screening: maintain recommende d screening guidelines including PAP screeninga s indicated- Depression - She denies any feelings of depression , frequent crying or feelings of harming self or others.- EPDS is 2.- Educated on the warning signs of depression and when to seek medicalatt ention.- SAFE SLEEPING INSTRUCTIO NS- avoid back sleep, co-sleepin g,- maintain cool environmen t,- no blankets or other objects in crib that could present hazard to infant.- Resume normal activity- May return to work w/o restrictio n when specified maternity leave is completed. - FOLLOW-UP: Schedule a follow-up appointmen t as neededPlan IUD Mirena at 8 wks PP [id number] Patricia Sim CNM [facility] [address] [place] [address] 09/28/2021 11:48:59 09/28/2021 20:15:00 [id number] Patricia Sim CNM [facility] [address] [place] [address] 10/02/2021 10:05:20 10/02/2021 11:04:35 Insertion of intrauterine contraceptive device [id number] Z30.430 COUNSELING was provided today regarding the following topics:- Instructed to check strings monthly, use back up contracept ion x [address] ment- Avoid tampon use when only bleeding lightly to prevent accidental IUD removal- Avoid exposure to STIs that could cause pelvic infection. - Reviewed possible side-effec ts of IUD such as irregulari ties in cycle bleeding as wellas amenorrhea .- No absolute or relative contraindi cation to IUD use are identified [place] [facility] [id number] Patricia Sim CNM [facility] [address] [place] [address] 09/20/2022 16:56:34 09/20/2022 22:49:24 Gynecologic examination [id number] Z01.419 27 y.o. here for annual exam. - Pap and STI testing- Contracept ion: IUD at present but removed d/t ongoing SE - irritabili ty, depression . Will switch to nuvaring - she had good response in the past but has very heavy cycle bleeding and therefore will do nuvaring without off week to control bleeding. Discussed w/Janina and agreeable to plan- Family h/o breast cancer __none- Depression screen NEG- BMI counseling , diet and exercise reviewed- STI prevention discussed- Dietary supplement s: multivitam in, Vit D, fish oil- RTO for annual or PRN Screening for malignant neoplasm of cervix 534162970 Z12.4 Surveillan ce of contraception [id number] Z30.40 COUNSELING was provided today regarding the following: - CHC use was discussed with the patient in detail including CHC risks,bene fits, side effects, and ACHES.- Backup contracept ion x 2 weeks after quick start today- Condoms should be used for STI prevention .- No absolute or relative contraindi cations to nuvaring use were identified Depression screening 171 Z13.31 Intimate Partner Violence Screening: Feels safe at home: Yes Emotional abuse: No Physical abuse: No Sexual abuse: No Removal of intrauterine device 77328075 Z30.432 IUD removed intact [id number] Yessenia [facility], [facility] [address] [place] [address] 01/25/2024 13:07:22 01/25/2024 13:55:38 Gynecologic examination 13694584 Z01.419 Screening for malignant 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 reviewed guidelines and not due for pap until 2024 Surveillan ce of contraception 512152783 Z30.40 Depression screening 171 Z13.31 See Intake Screening - PHQ Dyspareunia [id number] N94 .10 Health Concerns Section Related Observation LastModified by Organization Detai ls LastModified Time None Recorded Concern Status LastModified by Organization Details LastModified Time None Recorded Advance Directives Directive None Recorded Payers Encounter Date Sequence Insurance Name Policy Number Policy Arvizu Covered Member ID Arvizu Member ID Guarantor Name 09/12/2021 1 [facility] [id number] Dylan Black [id number] Janina Black 09/28/2021 1 [facility] [id number] Dylan Black [id number] Janina Black 10/02/2021 1 [facility] [id number] Dylan Black [id number] Janina Black 09/20/2022 1 [facility] [id number] Dylan Black [id number] Janina Black 01/25/2024 1 [facility] [id number] Janina Yun [id number] Janina Yun Notes Date Note Type Note Provider Name and Address Organization Details Recorded Time 09/12/2021 text/html VisitReported bypatient.Associate d Symptoms:no abnormal bleeding; no vaginal discharge; no pelvic pain; laceration well healed; no constipation; no fecal incontinence; no dysuria; no urinary incontinence; no fever; no problems; no mastitis; normal mood Patricia Sim CNM [address] [place], [address], [facility] [employer] IV 09/12/2021 12:17:39 09/28/2021 text/html Feeling well tod ay No new sx since last visit has not had intercourse since having baby. Patricia Sim CNM [address] [place], [address], [facility] [employer] IV 10/02/2021 11:41:05 10/02/2021 text/html Feeling well tod ay No new sx since last visit has not had intercourse since having baby. Patricia Sim CNM [address] [place], [address], [facility] [employer] IV 10/02/2021 11:48:21 09/20/2022 text/html Annual GYNReport ed bypatient.Menstrual cycle:Normal menses Urinary symptoms:No hematuria; No incontinence Vulva:No genital lesion Vagina:Normal vaginal discharge Breast:No breast pain; No breast lump; No nipple discharge Sexual complaints:No sexual complaints; No pain during intercourse; Normal libido Menopausal Symptoms:No menopausal symptoms; Normal vaginal lubrication Psychological symptoms:No depression; No anxiety; No PMDD Pt is here for an annual. Everything is fine, she denies sti screening and blood work. She also stated that she wanted to talk about IUD removal, it effects her mood. Patricia Sim CNM [address] [place], [address], [facility] [employer] 09/20/2022 22:11:42 01/25/2024 text/html Annual GYNReport ed bypatient.History:n o gynecologic complaints Menstrual cycle:Normal menses Urinary symptoms:No hematuria Vulva:No genital lesion Vagina:Normal vaginal discharge Breast:No breast pain; No breast lump Current Contraception:Nuvar ing Sexual complaints:Pain during intercourse Menopausal Symptoms:No menopausal symptoms Psychological symptoms:No depression Preventive measures:Encourage self breast examination Janina is here for annual exam Yessenia Eng, TREVIN [address] [facility], [place], [address], [facility] 01/25/2024 13:52:49 OBGyn Episode Ob Episode Information Episode Created Date Number of Fetuses Patient Bloodtype Patient rh Status Prepregnancy Weight lbs Domestic Partner Domestic Partner Phone Father Name Insulation Professional Status 08/22/20 21 1 CLOSED Fetus Data First Name Last Name Admitted to NICU Weight (g) Sex Living Outcome Pediatric Complications Fetus ID Race Codes Race Delivery Type [id number]. [id number] M Full Term [id number] Jamal Calculation Initial Jamal Date Initial Exam Date Initial Exam Provider Initial Ultrasound Date Last Menstrual Period Date Ultra Sound Weeks Gestation 0 Eighteen To Twenty Week Jamal Update Ultra Sound Date Fundal Height At Umbil Quickening Date Ultra Sound Latest Weeks Gestation Final Jamal Confirmed By Final Jamal Confirmed Date Final Jamal Date Ultra Sound Latest Days Gestation 0 0 Menstrual History Last Menstrual Date Menses Monthly On Bcp Conception Prior Menses Frequency Hcg Plus Date Menarche Onset Age Delivery Information Delivery Date Delivery Type Labor Anesthesia Weeks Gestation Incision Type Labor Labor Length Hrs Delivered By Post Complications Tubal Sterilization Discharge Date Comments 1 Regional- idural [address] Issa Andrew Discharge Information Feeding Method Contraceptive Method Maternal HG B and HCT Levels
--- OUTSIDE RECORDS SUMMARY | 2024-11-16 18:00 | XMS_ITS | Clinical Summary ---
Author Organization [facility] Address [address] [address] Care Team Providers Care Notereader Name Role Phone Christal Liu MD Primary Care Provider Source Comments [facility],non-owned Affiliates and Associated Physician Practices is amultiple site organization consisting of ambulatory clinics and hospital sitesin [place], [place], [place] and [place]. This disclosure is being madepursuant to the Care Everywhere program and may not contain all information available regarding this patient. Last updated 18.[facility] Allergies No known active allergies Medications * Be aware that medications may not be up to date on this document. Alwaysverify current medications with the patient. Medication Sig Dispensed Refills Start Date End Date Status etonogestrel-ethinyl estradiol (Nuvaring) 0.12-0.015 MG/24HR vaginal ring 04/20/2023 Active Cetirizine HCl (ZYRTEC ALLERGY PO) Active ondansetron, disintegrating, (Zofran ODT) 4 MG tablet Take 1 (one) tablet by mouth every 6 hours as needed 01/22/2024 Active traZODone (Desyrel) 50 MG tablet Take 1 (one) tablet to 2 (two) tablets by mouth at bedtime 10/14/2023 Active sertraline (Zoloft) 100 MG tablet Take 1 (one) tablet by mouth once daily 10/14/2023 Active Active Problems Problem Noted Date Diagnosed Date Allergic rhinitis 05/13/2023 Immunizations Name Administration Dates Next Due INFLUENZA VACCINE, CELL CULT URE, QUADR. (FLUCELVAX QUADRIVALENT; 6MO+) (CCIIV4) 06/29/2022 Family History Medical History Relation Name Comments None Known Father Arrhthymia Mother Dementia Paternal Grandfather Cancer - Colon Paternal Grandmother None Known Sister 1 None Known Sister 2 Relation Name Status Comments Father Maternal Grandfather Maternal Grandmother Alive Mother Alive Paternal Grandfather Paternal Grandmother Sister 1 Alive Sister 2 Alive Social History Tobacco Use Types Packs/Day Years [...] Mass Index 33.45 05/18/2024 7:19 AM CDT Plan of Treatment Health Maintenance Due Date Last Done Comments PAP SMEAR 1995 HIV SCREENING 2010 HEPATITIS C SCREENING 05/07/2013 DTAP/TDAP/TD VACCINES (1 - Tdap) 2014 HEPATITIS B VACCINE (1 of 3 - 19+ 3-dose series) 2014 COVID-19 VACCINE ( season) 2024 06/29/2022, 12/08/2021, 06/16/2021, Additional history exists INFLUENZA VACCINE (#1) 2024 06/28/2023, 2021 DEPRESSION SCREENING 10/07/2024 05/13/2023 ZOSTER VACCINE (1 of 2) 2045 HIB VACCINE Aged Out No longer eligi ble based on patient's age to complete this topic HPV VACCINE Aged Out No longer eligi ble based on patient's age to complete this topic MENINGOCOCCAL (Group B) VACCINE Aged Out No longer eligible based on patient's age to complete this topic MENINGOCOCCAL VACCINE Aged Out No katheryn franck eligible based on patient's age to complete this topic PNEUMOCOCCAL VACCINE Aged Out No long er eligible based on patient's age to complete this topic Care Teams Notereader Relationship Specialty Start Date End Date Christal Liu MD [address] [place] [address] PCP - General 11/28/23
--- OUTSIDE RECORDS SUMMARY | 2024-11-16 18:00 | XMS_ITS | Referral Summary ---
Author Organization [facility] Address [address] [place] [address] Care Team Providers Care Teacher Early Childhood Development Name Role Phone Christal Liu MD Primary Care Provider Source Comments [facility],non-owned Affiliates and Associated Physician Practices is amultiple site organization consisting of ambulatory clinics and hospital sitesin [place], [place], [place] and [place]. This disclosure is being madepursuant to the Care Everywhere program and may not contain all information available regarding this patient. Last updated 18.[facility] Allergies No known active allergies Medications * [...] URE, QUADR. (FLUCELVAX QUADRIVALENT; 6MO+) (CCIIV4) 06/29/2022 Social History Tobacco Use Types Packs/Day Years [...] 05/18/2024 7:19 AM CDT Plan of Treatment Not on file Care Teams Teacher Early Childhood Development Relationship Specialty Start Date End Date Christal Liu MD [address] [place] [address] [facility] - General 11/28/23
--- OUTSIDE RECORDS SUMMARY | 2024-11-16 18:00 | XMS_ITS ---
Author Organization [facility] Address [address] [place], [place] [address] Care Team Providers Care Cloth Burler Name Role Phone CRAIG Venegas Unavailable [phone] Allen Mcrae Unavailable Unavailable ART REYES Unavailable [phone] Allergies No Known Allergies REASON FOR VISIT *Possible ingrown nail Encounters Encounter Location Date Provider Diagnosis [facility] [address] [place], [place] [id number] 03/20/2024 ART REYES Ingrowing nail L60.0 ; Cellulitis of left toe L03.032 and Pain in left toe(s) M79.675 Assessments Encounter Date Diagnosis (ICD Code) Assessment Notes Treatment Notes Treatment Clinical Notes Section Notes 03/20/2024 Ingrowing nail (ICD-10 - L60.0) 03/20/2024 Cellulitis of left toe (ICD-10 - L03.032) 03/20/2024 Pain in left toe(s) (ICD-10 - M79.675) 03/20/2024 Other I discussed various treatment options to the patient for onychocryptosis. I discussed removal of the offending nail border and chemical matrixectomy to prevent regrowth. The patient decided on permanent removal of the nail border. The consent was signed and placed in the patients chart and all questions were answered. Following skin prep, the toe was injected with 3ccs of a 1:1 mixture of 0.5% marcaine plain and 1% lidocaine plain. A digital tournequet was applied and the offending nail borders was removed. Three applications of 89% phenol for 30 seconds each, were applied to the nail matrix to prevent regrowth. The digital tourniquet was released and the toe was cleansed with isopropyl alcohol. A dry sterile compressive dressing was applied and the patient was given soaking instructions. Plan Of Treatment Treatment Notes Assessment Notes Other I discussed various treatment options to the patient for onychocryptosis. I discussed removal of the offending nail border and chemical matrixectomy to prevent regrowth. The patient decided on permanent removal of the nail border. The consent was signed and placed in the patients chart and all questions were answered. Following skin prep, the toe was injected with 3ccs of a 1:1 mixture of 0.5% marcaine plain and 1% lidocaine plain. A digital tournequet was applied and the offending nail borders was removed. Three applications of 89% phenol for 30 seconds each, were applied to the nail matrix to prevent regrowth. The digital tourniquet was released and the toe was cleansed with isopropyl alcohol. A dry sterile compressive dressing was applied and the patient was given soaking instructions. Progress Notes * MALISSA GUERRADOB:1995 ( 28 yo F)Acc No.[id number]:03/20/2024 Patient: David AHMETMALISSA Provider: Pamela Reyes DPM :1995 A ge:28 Y S ex:Female Date:03/20/2024 Address:[address] [place] [address] Subjective: * Chief Complaints: * 1 . *Possible ingrown nail. * HPI: H PI: New Complaint E stablished patient presents with a new complaint., Patient complains of an issue to possible ingrown toenail, left great toenail medial border. Duration of problem is a couple of weeks. Patient states she had lateral border on the same toe nail removed previously and that she thinks it may have grown back. Patient would also like that side of nail removed as well. MA: LB. * ROS: G eneral / Constitutional: Patient denies c hills, fever. E ndocrine: Patient denies e xcessive thirst, frequent urination. ? C ardiovascular: Patient denies s hortness of breath, chest pain. S kin: Patient denies m ole changes. * Medical History: * Family History: F [...] are in no apparent distress. . Musc: F oot structure is normal. No abnormalities noted. Muscle strength is 5/5 to all joints bilaterally. There is no pain on palpation. . Derm: S kin is warm and dry, with no rashes, good skin turgor and normal hair distribution. Bilateral nail borders are incurvated - left great toe. . Neuro: G rossly intact to light touch bilateral.. Vasc: D orsalis pedis and posterior tibial pulses 2+ bilaterally. No edema noted. Capillary fill time < 3 seconds to all digits. . Assessment: * Assessment: 1. I ngrowing nail - L60.0 (Primary) 2 . C ellulitis of left toe - L03.032 3 . P ain in left toe(s) - M79.675 Plan: * Treatment: * Procedure Codes: 1 1750 REMOVAL OF NAIL BED, Modifiers: TA * Billing Information: * Visit Code: 89882 Office Visit, Est Pt., Level 3. Modifiers: 25 * Procedure Codes: 65644 REMOVAL OF NAIL BED. Modifiers: TA * Sign off status: Completed true * Provider: Pamela Reyes DPM Date: 0 03/20/2024 Generated for Miranda lawler/Darrick/Katiaitting on: 0 11/16/2024 05:59 PM ORACLE EBS ARCHITECT History and Physical Notes * HPI (History of Present Illness) Category Sub-Category Detail Notes Category Not es HPI New Complaint Established amanda ent presents with a new complaint., Patient complains of an issue to possible ingrown toenail, left great toenail medial border. Duration of problem is a couple of weeks. Patient states she had lateral border on the same toe nail removed previously and that she thinks it may have grown back. Patient would also like that side of nail removed as well. MA: LB Examination Category Sub-Category Detail Notes Category Not es Physical Examination Gen: The patient is awake, alert, well developed, well groomed and well nourished. They are in no apparent distress. Vasc: Dorsalis pedis and p osterior tibial pulses 2+ bilaterally. No edema noted. Capillary fill time < 3 seconds to all digits. Neuro: Grossly intact to li ght touch bilateral. Musc: Foot structure is no rmal. No abnormalities noted. Muscle strength is 5/5 to all joints bilaterally. There is no pain on palpation. Derm: Skin is warm and dry , with no rashes, good skin turgor and normal hair distribution. Bilateral nail borders are incurvated - left great toe.
--- OUTSIDE RECORDS SUMMARY | 2024-11-16 18:00 | XMS_ITS | Clinical Summary ---
Author Organization [facility] Address [address] Attn: Epic Prelude ADT [place] [address] Care Team Providers Care Machine Cementer Name Role Phone Unavailable Primary Care Provider Unavailabl e Allergies No known active allergies Medications etonogestrel-Et hinyl Estradiol (NuvaRing) 0.12-0.015 mg/24 hr Ring Insert one ring vaginally and leave in place for 3 weeks, then skip off week and replace with new ring right away 4 Ring 3 08/06/2023 12:17 PM CDT 2 Active methylPREDNISol one (MEDROL DOSPACK) 4 mg Tablets, Dose Pack 6 TABLETS ON DAY ONE, 5 TABLETS DAY TWO, 4 TABLETS DAY THREE, 3 TABLETS DAY FOUR, 2 TABLETS DAY FIVE, AND 1 TABLET DAY SIX 21 Tablet 07/07/2023 3:40 PM CDT 3 Active sertraline (ZOLOFT) 50 mg tablet Take 1/2 tablet by mouth daily for 2 weeks, then take 1 tablet by mouth daily 30 Tablet 4 09/08/2023 1:44 PM [employer] 3 Active sertraline (ZOLOFT) 100 mg tablet Take one tablet by mouth every morning 30 Tablet 4 02/22/2024 4:16 PM CDT 4 Active traZODone (DESYREL) 50 mg tablet Take 1-2 tablets by mouth every night at bedtime 60 Tablet 4 02/22/2024 4:16 PM CDT 4 Active ondansetron (ZOFRAN ODT) 4 mg Tablet, Rapid Dissolve Dissolve 1 tablet on the tongue every 6 to 8 hours as needed for nausea and/or vomiting 20 Tablet 01/22/2024 11:17 AM CDT 4 Active estradioL (ESTRACE) 0.01% (0.1 mg/g) vaginal cream Place a pea sized amount to vaginal opening daily for 7 days, then every other day for 3 weeks then weekly as directed 42.5 Gram 3 01/26/2024 11:51 AM CDT 4 Active etonogestrel-Et hinyl Estradiol (NuvaRing) 0.12-0.015 mg/24 hr Ring Insert one new vaginal ring and leave in place for 3 weeks, skip off week and place new ring right away (remove old ring prior to insertion of new ring) 4 Ring 4 02/03/2024 12:14 PM CDT 4 Active bisacodyL (DULCOLAX) 5 mg Delayed Release tablet Take 4 (four) tablets by mouth pre-Procedure once for 1 dose (Take all 4 tablets one hour before prep solution. Make sure to drink plenty of water with these tablets.) 4 Tablet 04/29/2024 6:05 PM CDT 4 Active polyethylene glycol 3350 (MIRALAX) 17 gram/dose Powder Take 238g by mouth pre-Procedure once for 1 dose (Mix entire 238 g with 64 oz of clear liquid. Drink 8 oz glass every 30 to 40 mins until gone.) 238 Gram 4 Active DULoxetine (CYMBALTA) 30 mg Capsule, Delayed Release(E.C.) Take 1 Capsule (30 mg) by mouth every morning 30 Capsule 4 07/14/2024 7:33 PM CDT 4 Active traZODone (DESYREL) 150 mg tablet Take 1-2 Tablets (150-300 mg) by mouth nightly for sleep 60 Tablet 4 07/14/2024 7:33 PM CDT 4 Active buPROPion (WELLBUTRIN) 75 mg tablet Take 1 Tablet (75 mg) by mouth every morning 30 Tablet 4 10/22/2024 6:13 PM [employer] 4 Active benzonatate (TESSALON) 100 mg capsule Take 1 Capsule (100 mg) by mouth 3 times daily as needed. 15 Capsule 09/25/2024 5:52 PM [employer] 4 Active Immunizations Immunization Administration Dates Next Due INFLUENZA VACCINE QUADRIVALENT 6 MOS UP PF IM Social History Tobacco Use Types Packs/Day Years Used Date Smoking Tobacco: Never Assessed Comments Unknown Sex and Gender Information Value Date Recorded Sex Assigned at Not on file Legal Sex Female 3:23 PM CDT Gender Identity Not on file Sexual Orientation Not on file Plan of Treatment Health Maintenance Due Date Last Done Comments DTAP/TDAP/TD VACCINES (1 - Tdap) 2014 HEPATITIS B VACCINES (1 of 3 - 19+ 3-dose series) 2014 CERVICAL CANCER SCREENING 2016 INFLUENZA VACCINE (#1) 2024 06/28/2023 HPV VACCINES Aged Out No longer eligi ble based on patient's age to complete this topic PNEUMOCOCCAL VACCINE 0-64 YEARS Aged Out No longer eligible based on patient's age to complete this topic Insurance RX [employer] Member Subscriber Plan / Payer (Ef fective for All Dates) Name:MALISSA GUERRA Relation to Subscriber:Self Name:Malissa Guerra Payer ID:Not on file Group ID:[facility] Type:RX Commercial Address: [address] [employer] Medicare Part B RX [employer] RX Member Subscriber Plan / Payer (Ef fective 2023-Present) Name:Malissa Guerra Relation to Subscriber:Self Name:Malissa Guerra Subscriber ID:Not on file Payer ID:Not on file Group ID:[id number] Type:RX Commercial Address: [place] [address]
--- OUTSIDE RECORDS SUMMARY | 2024-11-16 18:00 | XMS_ITS | Patient Health Record ---
Author Organization [facility] Address [address] [place], [place] [address] Care Team Providers Care Strategy Manager Name Role Phone NadyaCRAIG pollack Unavailable [phone] Allen Mcrae Unavailable Unavailable LUIS EDUARDOART CONTRERAS Unavailable [phone] Allergies No Known Allergies Reason For Referral No Information Encounters Encounter Location Date Provider Diagnosis [facility] [address] [place], [place] [id number] 03/20/2024 ARTASYA COOMBS Ingrowing nail L60.0 ; Cellulitis of left toe L03.032 and Pain in left toe(s) M79.675 [facility] [address] [place], [place] [address] 04/03/2024 ART COOMBS Ingrowing nail L60.0 and Encounter for other specified surgical aftercare Z48.89 Assessments Encounter Date Diagnosis (ICD Code) Assessment Notes Treatment Notes Treatment Clinical Notes Section Notes 03/20/2024 Cellulitis of left toe (ICD-10 - L03.032) 03/20/2024 Ingrowing nail (ICD-10 - L60.0) 04/03/2024 Ingrowing nail (ICD-10 - L60.0) 04/03/2024 Encounter for other specified surgical aftercare (ICD-10 - Z48.89) 03/20/2024 Pain in left toe(s) (ICD-10 - [...] and the patient was given soaking instructions. 04/03/2024 Other I advised the patient that no further treatment is necessary at this time. If the condition should worsen they should call the office. Plan Of Treatment No Information Insurance Providers Payer Name Payer Address Payer Phone Subscriber Number Group Number Insured Name Patient Relationship to Insured Coverage Start Date Coverage End Date [facility] [address] [address] [place] [id number] MALISSA GUERRA Self - patient is the insured
[2024-11-16 18:06] VITALS: BP 131/78; PULSE 116; RESP 18; TEMP 36.6; O2SAT 100
--- NOTE | 2024-11-16 18:15 | ED_ITS ---
HPI - Skin/Abscess/Foreign Bdy General Chief complaint: Skin/Abscess/Foreign Body Stated complaint: lump under arm (painful) Time Seen by Provider: 11/16/24 18:15 Source: patient Mode of arrival: ambulatory Limitations: no limitations History of Present Illness HPI narrative: 29-year-old female presents with complaint of red painful bump to right axilla for 3-4 days. No drainage. Pain worse with movement. Afebrile. All systems reviewed and negative except as noted above. Related Data Allergies Allergy/AdvReac Type Severity Reaction Status Date / Time No Known Allergies Allergy Verified 11/16/24 18:08 Review of Systems Review of Systems: CONSTITUTIONAL: Denies fever, chills, or sweats. EYES: Denies visual changes, redness, or discharge. ENT: Denies rhinorrhea, congestion, sore throat, or otalgia. CARDIOVASCULAR: Denies chest pain, palpitations, or edema. RESPIRATORY: Denies cough or dyspnea. GASTROINTESTINAL: Denies abdominal pain, nausea, vomiting, or diarrhea. GENITOURINARY: Denies dysuria or hematuria. SKIN: Denies rash or itching. Reports red painful bump to right axilla. MUSCULOSKELETAL: Denies back pain, joint pain, or myalgia. NEUROLOGIC: Denies headache, numbness, or weakness. PSYCHIATRIC: Denies anxiety or depression. All other systems reviewed are negative, except as documented in HPI. PMFSH Comments At time of signature, agree with nursing past medical, surgical, social and family history. There is no relevant family history pertinent to the presenting complaint. Exam Narrative: GENERAL: This is a well-nourished, well-developed patient, in no apparent distress. HEAD: normocephalic, atraumatic. EYES: PERRL. Sclera clear/white. Vision is grossly intact. EARS: External ears normal NOSE: External nose normal NECK: Neck supple, non-tender without lymphadenopathy, masses or thyromegaly. CARDIOVASCULAR: Regular rate and rhythm without murmurs, gallops, or rubs. RESPIRATORY: Clear to auscultation. Breath sounds equal bilaterally. No wheezes, rales, or rhonchi. SKIN: warm, Dry, intact with no suspicious lesions or rash, good texture and turgor. small erythematous abscess/boil, approx. 1 cm diameter, to R axilla. NEURO: awake, alert, and oriented to person, place and time. There were no obvious focal neurologic abnormalities. EXTREMITIES: No joint tenderness, effusion, or edema noted. Course Course Level of Care: Express Care Visit Vital Signs Vital signs: Vital Signs Temperature 36.6 C 11/16/24 18:06 Pulse Rate 116 H 11/16/24 18:06 Respiratory Rate 18 11/16/24 18:06 Blood Pressure 131/78 11/16/24 18:06 Pulse Oximetry 100 11/16/24 18:06 Oxygen Delivery Room Air 11/16/24 18:06 Temperature 36.6 C 11/16/24 18:06 Pulse Rate 116 H 11/16/24 18:06 Respiratory Rate 18 11/16/24 18:06 Blood Pressure 131/78 11/16/24 18:06 Pulse Oximetry 100 11/16/24 18:06 Oxygen Delivery Room Air 11/16/24 18:06 Reviewed MDM - Skin/Abscess/Foreign Bdy MDM Narrative Medical decision making narrative: small abscess to right axilla. Will treat with antibiotic. Recommend warm compresses. Not appropriate for I and D at this time. Please be advised this is a medical document. It is intended for [id number] communication. It is written in medical language and may contain unfamiliar abbreviations or verbiage. Medical documents are intended to carry relevant inf ormation, facts as evident, and the clinical opinion of the practitioner at the time of the encounter. This report may have been done utilizing a voice recognition system. Attempts have been made to correct errors. However, there may be uncorrected grammatical, spelling, and recognition errors present. The file time of this note does not necessarily represent the time of service. Discharge Plan Discharge Clinical Impression: Abscess of axilla, right Patient Disposition: Home, Self-Care Condition: Stable Instructions: Antibiotic Form, Abscess (ED) Additional Instructions: Take antibiotic as prescribed until gone. Take ibuprofen or tylenol every 6 to 8 hours to treat pain. Apply a warm compress for 10 minutes 4 to 5 times a day. Wash normally with soap and water in the shower. See your doctor if not improving. Patient Language: Unknown Prescriptions: New sulfamethoxazole-trimethoprim [Bactrim DS] 800-160 mg tablet 1 tablet PO Q12H 10 Days Qty: 20 0RF Follow-up/Referrals: UNKNOWN,DOCTOR [Primary Care Provider] - Time of Disposition: 18:18
== END 2024-11-16 18:22 | disposition home or self-care (01) ==
PROVIDERS: Emergency Provider Nurse Practitioner Family
DX: L02.411 Cutaneous abscess of right axilla (principal)
CPT/HCPCS: 99213; G0463